=== PATIENT | male | born 1970 | race Caucasian/White ===

== ENCOUNTER 2021-04-06 21:44 | Emergency (ER) | payer OTHER ==
[2021-04-06 22:05] LABS: BASOPHIL 0.8 % (0-2); EOSINOPHIL 1.6 % (0-5); HCT 47.3 % (42.0-52.0); HGB 15.8 g/dl (13.2-18.0); MCH 28.9 pg (25.0-31.0); MCHC 33.4 g/dL (32.0-36.0); MCV 86.5 fL (78.0-100.0); MONOCYTE 11.9 % (0-12); NEUTROPHIL 42.5 % (41-80); NRBC 0; PLT 292 K/uL (150-400); RBC 5.47 M/uL (4.70-6.00); RDW 12.8 % (11.5-14.0); WBC 12.9 K/uL (4.0-10.5)
[2021-04-06 22:13] LABS: INR 1.01 (0.9-1.2); PROTHROMBIN TIME 12.7 SECONDS (11.8-13.4)
[2021-04-06 22:20] LABS: BILIRUBIN - TOTAL 0.4 mg/dL (0.2-1.0); BUN/CREAT RATIO (CALC) 12.1 RATIO; CREATININE 0.99 mg/dL (0.67-1.17); GLOBULIN (CALCULATION) 3.5 g/dL; POTASSIUM 2.9 mmol/L (3.5-5.1); TOTAL PROTEIN 7.5 g/dL (6.4-8.2)
[2021-04-06 22:28] LABS: PRO-BNP 10 pg/mL (<125)
== END 2021-04-06 22:18 | disposition other institution (70) ==
LOC: FER 21:44
PROVIDERS: Emergency Medicine
DX: I21.9 Acute myocardial infarction, unspecified (principal); R57.0 Cardiogenic shock
CPT/HCPCS: 36415; 71045; 80053; 83735; 83880; 84484; 85025; 85610; 85730; 93005; J1644; J3010; J7030